=== PATIENT | male | born 1995 | race Caucasian/White ===

== ENCOUNTER 2022-09-03 16:37 | Emergency (ER) | payer OTHER ==
[~2022-09-03] VITALS: Ht 193 cm; Wt 90.7 kg
--- NOTE | 2022-09-03 16:37 | NUR ---
Patient arrived c/c drug abuse. Hx fentanyl and meth use. A/O x 3
[2022-09-03] MEDS ORDERED: NALO4SPR BNOSTRILS (18:39)
[2022-09-03 18:40] VITALS: BP 136/83
--- NOTE | 2022-09-03 20:20 | NUR ---
Patient discharged to home in stable condition. Written and verbal after care instructions given. Patient verbalizes understanding of instruction.
== END 2022-09-03 20:21 | disposition home or self-care (01) ==
LOC: ER 17:21
DX: R41.82 Altered mental status, unspecified (principal); T40.601A Poisoning by unspecified narcotics, accidental (unintentional), initial encounter; F15.10 Other stimulant abuse, uncomplicated; Y92.410 Unspecified street and highway as the place of occurrence of the external cause